=== PATIENT | male | born 1960 | race African-American/Black ===

== ENCOUNTER 2019-04-18 00:26 | Emergency (ER) | payer SELFPAY ==
[~2019-04-18] VITALS: Ht 177.8 cm; Wt 63.5 kg
[2019-04-18] MEDS ORDERED: fentaNYL PF VIAL 100 MCG/2 ML VIAL IV ONE (01:45)
[2019-04-18] MEDS ORDERED: KETOROLAC 15 MG/ML VIAL. IV ONE (01:45)
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
[2019-04-18 03:39] VITALS: BP 110/66
[2019-04-18] MEDS ORDERED: ORPH100T PO (03:46)
[2019-04-18] MEDS ORDERED: HYDR-3164 PO (03:46)
[2019-04-18] MEDS ORDERED: NAPR-695 PO (03:46)
== END 2019-04-18 04:00 | disposition home or self-care (01) ==
LOC: ER 00:26
DX: S16.1XXA Strain of muscle, fascia and tendon at neck level, initial encounter (principal); S39.012A Strain of muscle, fascia and tendon of lower back, initial encounter; R51 Headache; M54.6 Pain in thoracic spine; V43.52XA Car driver injured in collision with other type car in traffic accident, initial encounter; Y93.89 Activity, other specified; Y92.410 Unspecified street and highway as the place of occurrence of the external cause; Y99.8 Other external cause status
CPT/HCPCS: 70450; 72125; 72128; 72131; 96374; 96375; 99284; J1885; J3010